=== PATIENT | female | born 1935 | race Caucasian/White ===

== ENCOUNTER 2019-12-11 16:47 | Emergency (ER) | payer SELFPAY ==
[~2019-12-11] VITALS: Ht 157.5 cm; Wt 70.0 kg
[~2019-12-11 16:47] MED LIST: ASPI81TA52 PO; DIAZ5TAB4 PO; HYDR-4383 PO; LEVO500T89 PO; LISI-604 PO; MECL-183 PO; NITR0.4T SL; NITR0.4T51 SL; PANT-47 PO; SIMV-42 PO
[2019-12-11] MEDS ORDERED: bacitracin 15gm ointment TP ONE (17:45)
[2019-12-11] MEDS ORDERED: LIDOcaine 1% W/epiNEPHrine 1:200,000 10ml vial IJ ONE (17:45)
[2019-12-11 20:07] VITALS: BP 158/62
== END 2019-12-11 20:10 | disposition home or self-care (01) ==
LOC: ER 16:48
DX: S09.90XA Unspecified injury of head, initial encounter (principal); E78.00 Pure hypercholesterolemia, unspecified; E11.9 Type 2 diabetes mellitus without complications; G89.29 Other chronic pain; Z98.890 Other specified postprocedural states; Z88.2 Allergy status to sulfonamides; Z88.8 Allergy status to other drugs, medicaments and biological substances; Z79.82 Long term (current) use of aspirin; Z79.2 Long term (current) use of antibiotics; Z79.899 Other long term (current) drug therapy; W19.XXXA Unspecified fall, initial encounter; Y93.89 Activity, other specified; Y92.89 Other specified places as the place of occurrence of the external cause; Y99.8 Other external cause status
CPT/HCPCS: 70450; 72125; 99285